=== PATIENT | male | born 1940 | race Caucasian/White ===

== ENCOUNTER 2016-07-25 11:09 | Inpatient (IN) | payer OTHER, MEDICARE ==
[~2016-07-25] VITALS: Ht 185.4 cm; Wt 77.2 kg
[~2016-07-25 11:09] MED LIST: AMLODIPINE BESY10 MG; AMOXICILLIN875 MG PO; ANTABUSE250 MG PO; ANTABUSE500 MG PO; ARICEPT5 MG PO; ASPIRIN325 M1; Antabuse PO; Aspirin PO; CARDIZEM CD,CA240 M1 PO; CEFDINIR300 MG PO; CENTRUM SILVER1 EACH; CYCLOBENZAPRINE10 MG PO; Cardizem CD,Cartia X PO; DIGOX125 MCG PO; DILTIAZEM 24HR240 MG PO; DISULFIRAM500 MG; DULOXETINE HCL30 MG PO; Ecotrin PO; FOLIC ACID1 MG PO; LOPRESSOR25 MG PO; LOTENSIN20 M1 PO; MIRALAX17 GM PO; NAPROSYN500 MG PO; NORCO 5/3251 TABLET PO; Naprosyn PO; Norvasc PO; OMEPRAZOLE40 M1 PO; OXAYDO5 MG PO; PRILOSEC40 MG; PriLOSEC PO; SIMVASTATIN20 MG PO; TRAMADOL HCL50 MG PO; VITAMIN B-1250 MC3 PO; VITAMIN B12 100MCG PO; XARELTO20 MG PO; ZITHROMAX Z-PA250 MG PO; Zocor PO
[2016-07-25 12:31] LABS: EOSINOPHIL (%) 0.6 % (0-5); IMMATURE GRANULOCYTE (%) 1.2 % (0.0-0.7); IMMATURE GRANULOCYTE COUNT 0.4 K/uL; LYMPHOCYTE COUNT 0.3 K/uL (1.0-2.8); MONOCYTE (%) 5.6 % (3-12); MONOCYTE COUNT 0.2 K/uL (0-0.8); NEUTROPHIL (%) 82.6 % (45-76); NEUTROPHIL COUNT 2.7 K/uL (1.8-6.4)
[2016-07-25 12:40] LABS: INTER. NORMALIZED RATIO 1.7; PROTHROMBIN TIME 17.4 (9.2-11.2); PTT 21.1 (25-32)
[2016-07-25 12:45] LABS: HEMATOCRIT 33.5 % (38.0-50.0); MCH 29.3 PG (29.0-34.0); MCHC 34.6 G/DL (30.0-36.0); MCV 84.6 FL (86-99); RBC DIS.WIDTH-CV 14.9 % (11.8-14.6); RBC DIS.WIDTH-SD 45.3 % (39-53); RED BLOOD COUNT 3.96 M/uL (4.00-5.50); WHITE BLOOD COUNT 3.2 K/uL (4.1-10.2)
[2016-07-25 12:47] LABS: TROP-I INTERPRETATION NEGATIVE; TROPONIN-I 0.03 ng/mL (0.0-0.30)
[2016-07-25 13:11] LABS: ANION GAP 12 MEQ/L (2-14); CHLORIDE 105 MEQ/L (99-109); POTASSIUM 4.4 MEQ/L (3.7-5.4); SAMPLE HEMOLYSIS CHECK 2; SAMPLE ICTERIC CHECK 0; SAMPLE LIPEMIA CHECK 0; SODIUM 136 MEQ/L (136-147)
[2016-07-25 13:17] LABS: GFR ESTIMATE (CALCULATED) > 59 mL/min/; GLUCOSE 103 mg/dL (70-99); UREA NITROGEN (BUN) 16 mg/dL (9-23)
[2016-07-25 13:56] LABS: DIGOXIN < 0.3 ng/mL (0.8-2.0)
[2016-07-25 14:25] LABS: PLAT.SUFFICIENCY DECREASED; USER ID SDF
[2016-07-25 14:28] LABS: MEAN PLAT.VOLUME 11.9 uM^3 (9.0-12.4); PLATELET COUNT 8 K/uL (156-360)
[2016-07-25 20:54] VITALS: BP 110/89
[2016-07-25 21:19] LABS: TROP-I INTERPRETATION NEGATIVE; TROPONIN-I 0.03 ng/mL (0.0-0.30)
[2016-07-25 21:59] LABS: HEMATOCRIT 35.5 % (38.0-50.0); MCH 27.9 PG (29.0-34.0); MCHC 32.7 G/DL (30.0-36.0); MCV 85.3 FL (86-99); RBC DIS.WIDTH-CV 15.3 % (11.8-14.6); RBC DIS.WIDTH-SD 47.9 % (39-53); RED BLOOD COUNT 4.16 M/uL (4.00-5.50)
[2016-07-25 22:00] VITALS: BP 110/89
[2016-07-25 22:02] LABS: MEAN PLAT.VOLUME 12.7 uM^3 (9.0-12.4); PLATELET COUNT 108 K/uL (156-360); WHITE BLOOD COUNT 8.6 K/uL (4.1-10.2)
[2016-07-26] VITALS (7 sets, daily range): BP systolic 102–126; BP diastolic 58–78
[2016-07-26 04:55] LABS: HEMATOCRIT 33.3 % (38.0-50.0); MCH 28.5 PG (29.0-34.0); MCHC 33.6 G/DL (30.0-36.0); MCV 84.7 FL (86-99); MEAN PLAT.VOLUME 12.2 uM^3 (9.0-12.4); PLATELET COUNT 86 K/uL (156-360); RBC DIS.WIDTH-CV 15.1 % (11.8-14.6); RBC DIS.WIDTH-SD 46.1 % (39-53); RED BLOOD COUNT 3.93 M/uL (4.00-5.50); WHITE BLOOD COUNT 8.5 K/uL (4.1-10.2)
[2016-07-26 05:16] LABS: TROP-I INTERPRETATION NEGATIVE; TROPONIN-I < 0.01 ng/mL (0.0-0.30)
[2016-07-26 13:12] LABS: TROP-I INTERPRETATION NEGATIVE; TROPONIN-I < 0.01 ng/mL (0.0-0.30)
[2016-07-27 03:06] VITALS: BP 122/82
[2016-07-27 07:17] LABS: MCH 28.5 PG (29.0-34.0); MCHC 33.2 G/DL (30.0-36.0); MCV 85.9 FL (86-99); MEAN PLAT.VOLUME 12.7 uM^3 (9.0-12.4); PLATELET COUNT 96 K/uL (156-360); RBC DIS.WIDTH-CV 15.3 % (11.8-14.6); RBC DIS.WIDTH-SD 48.1 % (39-53); RED BLOOD COUNT 3.61 M/uL (4.00-5.50)
[2016-07-27 07:40] LABS: ALKALINE PHOSPHATASE 69 IU/L (3-129); ANION GAP 8 MEQ/L (2-14); CHLORIDE 104 MEQ/L (99-109); DIRECT BILIRUBIN 0.2 mg/dL (0.0-0.3); GFR ESTIMATE (CALCULATED) > 59 mL/min/; GLUCOSE 95 mg/dL (70-99); POTASSIUM 4.3 MEQ/L (3.7-5.4); SAMPLE HEMOLYSIS CHECK 0; SAMPLE ICTERIC CHECK 0; SAMPLE LIPEMIA CHECK 0; SODIUM 133 MEQ/L (136-147); TOTAL BILIRUBIN 0.6 MG/DL (0.0-1.0); UREA NITROGEN (BUN) 11 mg/dL (9-23)
[2016-07-27 08:40] VITALS: BP 145/74
[2016-07-27 12:19] VITALS: BP 136/77
[2016-07-27 12:49] LABS: TROP-I INTERPRETATION NEGATIVE; TROPONIN-I < 0.01 ng/mL (0.0-0.30)
[2016-07-27 15:02] LABS: CHLORIDE 107 mEq/L (99-109); POTASSIUM 4.6 mEq/L (3.7-5.4); SODIUM 135 mEq/L (136-147)
[2016-07-27 15:03] LABS: GLUCOSE 101 mg/dL (70-99)
[2016-07-27 15:07] LABS: GFR ESTIMATE (CALCULATED) > 59 mL/min/
[2016-07-27 15:08] LABS: UREA NITROGEN (BUN) 16 mg/dL (9-23)
[2016-07-27 15:52] VITALS: BP 125/71
[2016-07-27 19:24] VITALS: BP 117/66
[2016-07-27 23:44] VITALS: BP 119/75
[2016-07-28] VITALS (11 sets, daily range): BP systolic 111–184; BP diastolic 74–102
[2016-07-28 18:42] LABS: BICARBONATE 15.3 mEq/L (22-26); CARBOXY HGB 1.8 % (0-5); METHEMOGLOBIN 1.4 % (0-1.5); PCO2 22 mm Hg (35-45); PO2 68 mm Hg (80-100); pH 7.45 (7.35-7.45)
[2016-07-28 18:43] LABS: COMMENTS - BLOOD GASES +C; DEVICE HFNC; O2 FLOW 15 L/MIN; SITE RR +A; TOTAL RESP RATE 32 resp/min
[2016-07-28 20:22] LABS: HEMATOCRIT 32.4 % (38.0-50.0); MCH 28.9 PG (29.0-34.0); MCHC 33.6 G/DL (30.0-36.0); MCV 85.9 FL (86-99); MEAN PLAT.VOLUME 12.7 uM^3 (9.0-12.4); PLATELET COUNT 110 K/uL (156-360); RBC DIS.WIDTH-CV 15.3 % (11.8-14.6); RBC DIS.WIDTH-SD 47.7 % (39-53); RED BLOOD COUNT 3.77 M/uL (4.00-5.50); WHITE BLOOD COUNT 8.5 K/uL (4.1-10.2)
[2016-07-28 21:45] LABS: METH RESISTANT S AUREUS PCR NEGATIVE (NEGATIVE)
[2016-07-28 22:49] LABS: PROBE CHECK PASS; SPECIMEN PROCESSING CONTROL PASS
[2016-07-29] VITALS (36 sets, daily range): BP systolic 119–157; BP diastolic 61–101
[2016-07-29 01:52] LABS: EOSINOPHIL (%) 0 % (0-5); HEMATOCRIT 32.7 % (38.0-50.0); IMMATURE GRANULOCYTE (%) 1.2 % (0.0-0.7); IMMATURE GRANULOCYTE COUNT 1.3 K/uL; LYMPHOCYTE COUNT 0.6 K/uL (1.0-2.8); MCH 28.7 PG (29.0-34.0); MCHC 33.3 G/DL (30.0-36.0); MCV 86.1 FL (86-99); MEAN PLAT.VOLUME 11.9 uM^3 (9.0-12.4); MONOCYTE (%) 7.2 % (3-12); MONOCYTE COUNT 0.8 K/uL (0-0.8); NEUTROPHIL (%) 86.2 % (45-76); NEUTROPHIL COUNT 9.4 K/uL (1.8-6.4); PLATELET COUNT 92 K/uL (156-360); RBC DIS.WIDTH-CV 15.3 % (11.8-14.6); RBC DIS.WIDTH-SD 47.4 % (39-53); WHITE BLOOD COUNT 10.9 K/uL (4.1-10.2)
[2016-07-29 02:01] LABS: CHLORIDE 109 mEq/L (99-109); POTASSIUM 4.7 mEq/L (3.7-5.4); SODIUM 135 mEq/L (136-147)
[2016-07-29 02:03] LABS: GLUCOSE 114 mg/dL (70-99)
[2016-07-29 02:04] LABS: ANION GAP 11 MEQ/L (2-14)
[2016-07-29 02:05] LABS: TOTAL BILIRUBIN 0.8 mg/dL (0.0-1.0)
[2016-07-29 02:06] LABS: ALKALINE PHOSPHATASE 73 IU/L (3-129)
[2016-07-29 02:07] LABS: GFR ESTIMATE (CALCULATED) > 59 mL/min/
[2016-07-29 02:08] LABS: INTER. NORMALIZED RATIO 1.7; PROTHROMBIN TIME 17.7 (9.2-11.2); PTT 53.9 (25-32); UREA NITROGEN (BUN) 10 mg/dL (9-23)
[2016-07-29 03:58] LABS: FIBRINOGEN 114 MG/DL (160-450)
[2016-07-29 05:32] LABS: HEMATOCRIT 30.1 % (38.0-50.0); MCH 28.5 PG (29.0-34.0); MCHC 33.6 G/DL (30.0-36.0); MCV 84.8 FL (86-99); PLATELET COUNT 87 K/uL (156-360); RBC DIS.WIDTH-CV 15.3 % (11.8-14.6); RBC DIS.WIDTH-SD 47.8 % (39-53); RED BLOOD COUNT 3.55 M/uL (4.00-5.50); WHITE BLOOD COUNT 8.7 K/uL (4.1-10.2)
[2016-07-29 06:35] LABS: ANION GAP 11 MEQ/L (2-14); CHLORIDE 108 MEQ/L (99-109); GFR ESTIMATE (CALCULATED) > 59 mL/min/; GLUCOSE 97 mg/dL (70-99); SAMPLE HEMOLYSIS CHECK 0; SAMPLE ICTERIC CHECK 0; SAMPLE LIPEMIA CHECK 0; SODIUM 135 MEQ/L (136-147); UREA NITROGEN (BUN) 10 mg/dL (9-23)
[2016-07-29 06:41] LABS: POTASSIUM 3.7 MEQ/L (3.7-5.4)
[2016-07-29 13:02] LABS: MAGNESIUM 1.6 mg/dl (1.3-2.7)
[2016-07-30] VITALS (22 sets, daily range): BP systolic 112–153; BP diastolic 62–84
[2016-07-30 00:12] LABS: INFLUENZA A VIRAL ANTIGEN NEGATIVE; INFLUENZA B VIRAL ANTIGEN NEGATIVE
[2016-07-30 06:50] LABS: INTER. NORMALIZED RATIO 1.4; PROTHROMBIN TIME 14.4 (9.2-11.2); PTT 55.1 (25-32)
[2016-07-30] MEDS ORDERED: BICALUTAMIDE50 MG PO (08:53)
[2016-07-30] MEDS ORDERED: DILTIAZEM 24HR240 MG PO (08:54)
[2016-07-30] MEDS ORDERED: FLEXERIL10 MG PO (08:55)
[2016-07-30] MEDS ORDERED: XARELTO20 MG PO (08:56)
[2016-07-30] MEDS ORDERED: DONEPEZIL HCL5 MG PO (08:56)
[2016-07-30] MEDS ORDERED: SIMVASTATIN20 MG PO (08:57)
[2016-07-31] VITALS (25 sets, daily range): BP systolic 107–139; BP diastolic 60–80
[2016-07-31 06:34] LABS: INTER. NORMALIZED RATIO 1.4; PROTHROMBIN TIME 14.7 (9.2-11.2); PTT 58.2 (25-32)
[2016-07-31 07:47] LABS: INTERNAL CONTROL VALID? YES
[2016-07-31 07:49] LABS: HEMATOCRIT 31.1 % (38.0-50.0); MCH 28.6 PG (29.0-34.0); MCHC 34.1 G/DL (30.0-36.0); MCV 83.8 FL (86-99); MEAN PLAT.VOLUME 12.1 uM^3 (9.0-12.4); PLATELET COUNT 101 K/uL (156-360); RBC DIS.WIDTH-CV 15.4 % (11.8-14.6); RBC DIS.WIDTH-SD 47.3 % (39-53); RED BLOOD COUNT 3.71 M/uL (4.00-5.50); WHITE BLOOD COUNT 8.5 K/uL (4.1-10.2)
[2016-07-31 07:56] LABS: EOSINOPHIL (%) 0.1 % (0-5); IMMATURE GRANULOCYTE (%) 0.8 % (0.0-0.7); IMMATURE GRANULOCYTE COUNT 0.1 K/uL; LYMPHOCYTE COUNT 0.6 K/uL (1.0-2.8); MONOCYTE (%) 6.2 % (3-12); MONOCYTE COUNT 0.5 K/uL (0-0.8); NEUTROPHIL (%) 85.3 % (45-76); NEUTROPHIL COUNT 7.2 K/uL (1.8-6.4)
[2016-07-31 08:02] LABS: ANION GAP 10 MEQ/L (2-14); CHLORIDE 103 MEQ/L (99-109); GFR ESTIMATE (CALCULATED) > 59 mL/min/; GLUCOSE 103 mg/dL (70-99); POTASSIUM 3.4 MEQ/L (3.7-5.4); SAMPLE HEMOLYSIS CHECK 0; SAMPLE ICTERIC CHECK 0; SAMPLE LIPEMIA CHECK 0; SODIUM 135 MEQ/L (136-147); UREA NITROGEN (BUN) 10 mg/dL (9-23)
[2016-08-01] VITALS (15 sets, daily range): BP systolic 107–134; BP diastolic 59–75
[2016-08-01 06:23] LABS: INTER. NORMALIZED RATIO 1.4; PROTHROMBIN TIME 14.6 (9.2-11.2)
[2016-08-01 13:10] LABS: ANION GAP 14 MEQ/L (2-14); CHLORIDE 102 MEQ/L (99-109); GFR ESTIMATE (CALCULATED) > 59 mL/min/; GLUCOSE 88 mg/dL (70-99); SAMPLE HEMOLYSIS CHECK 0; SAMPLE ICTERIC CHECK 0; SAMPLE LIPEMIA CHECK 0; SODIUM 137 MEQ/L (136-147); UREA NITROGEN (BUN) 11 mg/dL (9-23)
[2016-08-01 13:14] LABS: POTASSIUM 4.2 MEQ/L (3.7-5.4)
[2016-08-02 01:00] VITALS: BP 141/68
[2016-08-02 03:00] VITALS: BP 131/66
[2016-08-02 05:00] VITALS: BP 124/70
[2016-08-02 06:11] LABS: INTER. NORMALIZED RATIO 1.4; PROTHROMBIN TIME 14.8 (9.2-11.2); PTT 54.6 (25-32)
[2016-08-02 09:00] VITALS: BP 135/66
[2016-08-02 13:00] VITALS: BP 118/62
[2016-08-03] VITALS: BP 134/79
[2016-08-03 04:00] VITALS: BP 155/77
[2016-08-03 07:13] LABS: HEMATOCRIT 34.8 % (38.0-50.0); MCH 27.5 PG (29.0-34.0); MCHC 32.8 G/DL (30.0-36.0); MCV 84.1 FL (86-99); RBC DIS.WIDTH-CV 15.5 % (11.8-14.6); RBC DIS.WIDTH-SD 47.7 % (39-53); RED BLOOD COUNT 4.14 M/uL (4.00-5.50); WHITE BLOOD COUNT 6.2 K/uL (4.1-10.2)
[2016-08-03 07:28] LABS: EOSINOPHIL (%) 0.2 % (0-5); IMMATURE GRANULOCYTE (%) 2.1 % (0.0-0.7); IMMATURE GRANULOCYTE COUNT 0.1 K/uL; INTER. NORMALIZED RATIO 1.9; LYMPHOCYTE COUNT 0.5 K/uL (1.0-2.8); MEAN PLAT.VOLUME 12.3 uM^3 (9.0-12.4); MONOCYTE (%) 7.7 % (3-12); MONOCYTE COUNT 0.5 K/uL (0-0.8); NEUTROPHIL (%) 81.9 % (45-76); NEUTROPHIL COUNT 5.1 K/uL (1.8-6.4); PLATELET COUNT 135 K/uL (156-360); PROTHROMBIN TIME 19.8 (9.2-11.2); PTT 67.9 (25-32)
[2016-08-03 07:50] VITALS: BP 134/67
[2016-08-03 08:05] LABS: HEMATOLOGY COMMENT 1 REV; USER ID NJR
[2016-08-03 08:41] LABS: ALKALINE PHOSPHATASE 73 IU/L (3-129); ANION GAP 12 MEQ/L (2-14); CHLORIDE 100 MEQ/L (99-109); GFR ESTIMATE (CALCULATED) > 59 mL/min/; GLUCOSE 103 mg/dL (70-99); SAMPLE HEMOLYSIS CHECK 0; SAMPLE ICTERIC CHECK 0; SAMPLE LIPEMIA CHECK 0; SODIUM 137 MEQ/L (136-147); UREA NITROGEN (BUN) 11 mg/dL (9-23)
[2016-08-03 08:42] LABS: TOTAL BILIRUBIN 0.8 MG/DL (0.0-1.0)
[2016-08-03 11:19] VITALS: BP 118/72
[2016-08-03 15:40] VITALS: BP 124/74
[2016-08-03 21:00] VITALS: BP 139/72
[2016-08-04 00:15] VITALS: BP 143/70
[2016-08-04 04:58] VITALS: BP 138/72
[2016-08-04 06:28] LABS: INTER. NORMALIZED RATIO 2.4; PROTHROMBIN TIME 24.8 (9.2-11.2)
[2016-08-04] MEDS ORDERED: DIGOXIN250 MCG PO (07:35)
[2016-08-04] MEDS ORDERED: COUMADIN1 MG PO (07:35)
[2016-08-04] MEDS ORDERED: DILTIAZEM 24HR180 MG PO (07:35)
[2016-08-04 08:45] VITALS: BP 129/77
== END 2016-08-04 12:25 | disposition home or self-care (01) | DRG 175 ==
LOC: EME → EDBD 11:09 → EDSEX 11:09 → 4WEST 14:15 → 4EAST 14:15 → EDOF 14:15 → 4EAST 20:25 → 4WEST 07-28 20:01 → 4SOUTH 08-02 15:56
PROVIDERS: Emergency Medicine; Internal Medicine Nephrology; Internal Medicine Pulmonary Disease; Nurse Practitioner Adult Health; Pediatrics; Physician Assistant; Physician Assistant Medical; Surgery
DX: I26.99 Other pulmonary embolism without acute cor pulmonale (principal); I51.3 Intracardiac thrombosis, not elsewhere classified; J18.9 Pneumonia, unspecified organism; J96.01 Acute respiratory failure with hypoxia; I82.220 Acute embolism and thrombosis of inferior vena cava; I82.411 Acute embolism and thrombosis of right femoral vein; I82.413 Acute embolism and thrombosis of femoral vein, bilateral; I82.491 Acute embolism and thrombosis of other specified deep vein of right lower extremity; I82.512 Chronic embolism and thrombosis of left femoral vein; Z91.120 Patient's intentional underdosing of medication regimen due to financial hardship; T45.516A Underdosing of anticoagulants, initial encounter; I08.0 Rheumatic disorders of both mitral and aortic valves; I27.2 Other secondary pulmonary hypertension; E87.6 Hypokalemia; E83.42 Hypomagnesemia; D69.59 Other secondary thrombocytopenia; D50.9 Iron deficiency anemia, unspecified; K76.0 Fatty (change of) liver, not elsewhere classified; I48.2 Chronic atrial fibrillation; I48.92 Unspecified atrial flutter; I10 Essential (primary) hypertension; J45.909 Unspecified asthma, uncomplicated; I25.10 Atherosclerotic heart disease of native coronary artery without angina pectoris; G89.29 Other chronic pain; M54.9 Dorsalgia, unspecified; E78.5 Hyperlipidemia, unspecified; K21.9 Gastro-esophageal reflux disease without esophagitis; F10.21 Alcohol dependence, in remission; F32.9 Major depressive disorder, single episode, unspecified; F41.9 Anxiety disorder, unspecified
CPT/HCPCS: 36600; 71010; 71020; 71275; 80048; 80053; 80076; 80162; 82803; 83605; 83735; 83880; 84100; 84443; 84484; 85025; 85027; 85384; 85610; 85730; 87040; 87070; 87205; 87449; 87502; 87641; 93005; 93306; 93970; 94640; 94640 76; 94760; 94799; 97530 GO; 99202; 99281; 99285; J0456; J0696; J1650; J1940; J2543; J2997; J3475; J7030; J7050